=== PATIENT | female | born 1995 ===

== ENCOUNTER 2019-10-04 10:24 | Emergency (ER) | payer SELFPAY ==
[~2019-10-04] VITALS: Ht 175.3 cm; Wt 63.0 kg
[2019-10-04 10:26] VITALS: BP 130/78
--- NOTE | 2019-10-04 10:27 | NUR ---
NIL X1 @ 1028
--- NOTE | 2019-10-04 10:45 | NUR ---
Pt states she does not want to wait any longer for evluation, departing ED in NAD
== END 2019-10-04 11:34 | disposition left against medical advice (07) ==
LOC: ED 11:30
DX: R51 Headache (principal); R11.10 Vomiting, unspecified
CPT/HCPCS: 99281